=== PATIENT | male | born 1985 | race Caucasian/White ===

== ENCOUNTER 2018-06-22 01:07 | Emergency (ER) | payer OTHER ==
--- NOTE | 2018-06-22 01:25 | EDPHY ---
H & P Stated Complaint: Abdominal Pain Time Seen by Provider: 06/22/18 01:25 HPI/ROS: HPI CHIEF COMPLAINT: Right-sided abdominal pain. HISTORY OF PRESENT ILLNESS: This is a very pleasant 33-year-old male presents emergency room with abdominal pain. Patient reports this started around 930 yesterday evening. It is now 130 in the morning. Presents emergency room with waxing waning abdominal discomfort. Mainly right sided right lower quadrant. No vomiting but did have nausea no fever. No urinary symptoms, no chest pain no shortness of breath. Past Medical History: No significant medical history Past Surgical History: Denies significant surgical history Social History: Denies drugs or alcohol does smoke tobacco. Family History: Noncontributory ROS REVIEW OF SYSTEMS: 10 Systems were reviewed and negative with the exception of the elements mentioned in the history of present illness. Exam Constitutional nontoxic no acute distress triage nursing summary reviewed, vital signs reviewed, awake/alert. Eyes normal conjunctivae and sclera, EOMI, PERRLA. HENT normal inspection, atraumatic, moist mucus membranes, no epistaxis, neck supple/ no meningismus, no raccoon eyes. Respiratory clear to auscultation bilaterally, normal breath sounds, no respiratory distress, no wheezing. Cardiovascular rate normal, regular rhythm, no murmur, no edema, distal pulses normal. Gastrointestinal mild tender palpation without quadrant no rebound, no guarding, normal bowel sounds, no distension, no pulsatile mass. Genitourinary no CVA tenderness. Musculoskeletal no midline vertebral tenderness, full range of motion, no calf swelling, no tenderness of extremities, no meningismus, good pulses, neurovascularly intact. Skin pink, warm, & dry, no rash, skin atraumatic. Neurologic awake, alert and oriented x 3, AAOx3, moves all 4 extremities equally, motor intact, sensory intact, CN II-XII intact, normal cerebellar, normal vision, normal speech. Psychiatric normal mood/affect. Heme/Lymph/Immune no lymphadenopathy. Differential Diagnosis: Differential diagnosis includes but is not limited to and in no particular order: Bowel obstruction, appendicitis, gallbladder disease, diverticulitis, colitis, enteritis, perforated viscus, gastritis, GERD , esophagitis, urinary tract infection, pyelonephritis, kidney stones Medical Decision Making: Plan for this patient IV establishment IV fluid bolus , IV Dilaudid 0.5 mg for pain control IV Zofran for nausea, CT scan abdomen pelvis with IV contrast to help delineate right lower quadrant pain rule out appendicitis. Re-evaluation: 0324: Patient is walking out of the emergency room he declined CT imaging declined any further medical care. He states his abdomen feels much better at a large bowel movement in the restroom. He does not want a CT scan he does not want to be observed further in emergency room. I explained to him we have not complete his abdominal pain workup including imaging given that he and right lower quadrant pain it is possible he has acute pathology on his CT scan or acute appendicitis. Patient is signing out against medical advice. Return precautions discussed with the patient Source: Patient - Personal History Current Tetanus/Diphtheria Vaccine: Unsure Current Tetanus Diphtheria and Acellular Pertussis (TDAP): Unsure - Medical/Surgical History Hx Asthma: No Hx Chronic Respiratory Disease: No Hx Diabetes: No Hx Cardiac Disease: No Hx Renal Disease: No Hx Cirrhosis: No Hx Alcoholism: No Hx HIV/AIDS: No Hx Splenectomy or Spleen Trauma: No Other PMH: denies - Social History Smoking Status: Current some day smoker Constitutional: Initial Vital Signs Temperature (C) 36.7 C 06/22/18 01:14 Heart Rate 119 H 06/22/18 01:14 Respiratory Rate 20 06/22/18 01:14 Blood Pressure 131/100 H 06/22/18 01:14 O2 Sat (%) 96 06/22/18 01:14 O2 Delivery Mode Room Air Allergies/Adverse Reactions: No Known Allergies Allergy (Verified 06/22/18 01:18) Home Medications: Medication Instructions Recorded Dexedrine 06/22/18 Medical Decision Making - Data Points Laboratory Results: Laboratory Results 06/22/18 02:10 06/22/18 01:20 06/22/18 06/22/18 06/22/18 02:10 01:20 01:20 WBC 10.01 10^3/uL H 10^3/uL TNP (3.80-9.50) RBC 5.07 10^6/uL 10^6/uL TNP (4.40-6.38) Hgb 15.9 g/dL g/dL TNP (13.7-17.5) Hct 44.5 % % TNP (40.0-51.0) MCV 87.8 fL fL TNP (81.5-99.8) MCH 31.4 pg pg TNP (27.9-34.1) MCHC 35.7 g/dL g/dL TNP (32.4-36.7) RDW 12.0 % % TNP (11.5-15.2) Plt Count 156 10^3/uL 10^3/uL TNP (150-400) MPV 10.3 fL fL TNP (8.7-11.7) Neut % (Auto) 83.4 % H % TNP (39.3-74.2) Lymph % (Auto) 9.6 % L % TNP (15.0-45.0) Josephine % (Auto) 6.2 % % TNP (4.5-13.0) Eos % (Auto) 0.2 % L % TNP (0.6-7.6) Baso % (Auto) 0.3 % % Not Reported (0.3-1.7) Nucleat RBC Rel Count 0.0 % % TNP (0.0-0.2) Absolute Neuts (auto) 8.35 10^3/uL H 10^3/uL TNP (1.70-6.50) Absolute Lymphs (auto) 0.96 10^3/uL L 10^3/uL TNP (1.00-3.00) Absolute Monos (auto) 0.62 10^3/uL 10^3/uL TNP (0.30-0.80) Absolute Eos (auto) 0.02 10^3/uL L 10^3/uL TNP (0.03-0.40) Absolute Basos (auto) 0.03 10^3/uL 10^3/uL TNP (0.02-0.10) Absolute Nucleated RBC 0.00 10^3/uL 10^3/uL TNP (0-0.01) Immature Gran % 0.3 % % TNP (0.0-1.1) Immature Gran # 0.03 10^3/uL 10^3/uL TNP (0.00-0.10) Sodium 139 mEq/L mEq/L (135-145) Potassium 3.9 mEq/L mEq/L (3.5-5.2) Chloride 106 mEq/L mEq/L (97-110) Carbon Dioxide 21 mEq/l L mEq/l (22-31) Anion Gap 12 mEq/L mEq/L (6-14) BUN 15 mg/dL mg/dL (7-23) Creatinine 0.7 mg/dL mg/dL (0.7-1.3) Estimated GFR > 60 Glucose 129 mg/dL H mg/dL (70-100) Calcium 9.9 mg/dL mg/dL (8.5-10.4) Total Bilirubin 0.7 mg/dL mg/dL (0.1-1.4) Conjugated Bilirubin 0.4 mg/dL mg/dL (0.0-0.5) Unconjugated Bilirubin 0.3 mg/dL mg/dL (0.0-1.1) AST 44 IU/L IU/L (17-59) ALT 102 IU/L H IU/L (21-72) Alkaline Phosphatase 70 IU/L IU/L (38-126) Total Protein 7.5 g/dL g/dL (6.3-8.2) Albumin 4.6 g/dL g/dL (3.5-5.0) Lipase 102 IU/L IU/L (23-300) Medications Given: Discontinued Medications Sodium Chloride (Ns) 1,000 mls @ 0 mls/hr IV EDNOW ONE; Wide Open PRN Reason: Protocol Stop: 06/22/18 01:29 Last Admin: 06/22/18 01:36 Dose: 1,000 mls Departure - Departure Disposition: Against Medical Advice Clinical Impression: Abdominal pain Qualifiers: Abdominal location: generalized Qualified Code(s): R10.84 - Generalized abdominal pain Condition: Good Instructions: Acute Abdominal Pain (ED) Referrals: NONE *PRIMARY CARE P,. [Primary Care Provider] - As per Instructions
[2018-06-22] MEDS ORDERED: ONDANSETRON 4 MG/2 ML VIAL IVP ONE (01:28)
[2018-06-22] MEDS ORDERED: NS 1,000 ML IV ONE (01:28)
[2018-06-22] MEDS ORDERED: HYDROmorphONE/DILAUDID 2 MG/ML INJ IVP ONE (01:28)
[2018-06-22 02:22] LABS: PLATELET COUNT 156 10^3/uL (150-400)
[2018-06-22] MEDS ORDERED: IOHEXOL 300 mgI/ML (OMNIPAQUE) 150 ML BTL IV ONE (02:39)
[2018-06-22 03:34] VITALS: BP 115/67
== END 2018-06-22 03:30 | disposition left against medical advice (07) ==
DX: R10.84 Generalized abdominal pain (principal)
CPT/HCPCS: J1170; J2405; Q9967